=== PATIENT | male | born 1960 | race African-American/Black ===

== ENCOUNTER 2016-07-07 10:24 | Emergency (ER) ==
[2016-07-07] MEDS ORDERED: SODIUM CHLORIDE 1,000 ML IV STA (10:32)
[2016-07-07 10:45] VITALS: BP 81/44; TEMP 96.8; BMI 25.6
[2016-07-07 10:53] LABS: BASOPHILS % (AUTO) 0.5 % (0.0-3.0); EOSINOPHILS % (AUTO) 0.2 % (0.0-7.0); HEMATOCRIT 33.8 % (42.0-52.0); HEMOGLOBIN 11.7 g/dl (14.0-18.0); IMMATURE GRANULOCYTE % (AUTO) 0.4 % (0.0-5.0); LYMPHOCYTES # (AUTO) 1.3 K/uL (0.60-3.4); LYMPHOCYTES % (AUTO) 23.9 (10.0-50.0); MEAN CORPUSCULAR HEMOGLOBIN 31.9 pg (27.0-31.0); MEAN CORPUSCULAR HGB CONC 34.6 (31.8-35.4); MEAN CORPUSCULAR VOLUME 92.1 fl (80.0-94.0); MONOCYTES # (AUTO) 0.3 K/uL (0.4-2.0); MONOCYTES % (AUTO) 5.9 (0-10); NEUTROPHILS # (AUTO) 3.8 K/ul (2.0-6.9); NEUTROPHILS % (AUTO) 69.1; PLATELET COUNT 181 10^3/uL (140-440); RED BLOOD COUNT 3.67 10^6/ul (4.70-6.10); WHITE BLOOD COUNT 5.47 K/ul (4.2-10.2)
[2016-07-07 11:33] LABS: ALANINE AMINOTRANSFERASE 23 U/L (12-78); ALBUMIN 3.4 g/dL (3.4-5.0); ALBUMIN/GLOBULIN RATIO 0.92; ALKALINE PHOSPHATASE 167 U/L (50-136); ANION GAP 12.4; ASPARTATE AMINO TRANSFERASE 24 U/L (15-37); BILIRUBIN,TOTAL 0.33 mg/dL (0.00-1.20); BLOOD UREA NITROGEN 15 mg/dL (7-18); BUN/CREATININE RATIO 10.34; CALCIUM 8.7 mg/dL (8.2-10.2); CARBON DIOXIDE 25 mmol/L (21-32); CHLORIDE 106 mmol/L (98-107); CREATINE KINASE 203 U/L; CREATININE 1.45 mg/dL (0.60-1.10); GLUCOSE 125 mg/dL (70-100); POTASSIUM 3.4 mmol/L (3.5-5.1); SODIUM 140 mmol/L (136-145); TOTAL PROTEIN 7.1 g/dL (6.4-8.2)
[2016-07-07 11:51] LABS: CREATINE KINASE MB 2.6 ng/ml (0.0-3.6)
--- NOTE | 2016-07-07 12:15 | ED.PDOC ---
General ED Provider: Dr. SPENSER DURHAM Chief Complaint: Non-specific Complaint Stated Complaint: altered LOC Time Seen by Physician: 11:00 Information Source: EMT Exam Limitations: No limitations Primary Care Provider: FATIMAH DAVIS Nursing and Triage Documentation Reviewed and Agree: Yes Neurological Complaint Exam - Altered Mental Status Complaint/Exam Current Mental Status: Agitation (LOW BLOOD PRESSURE AT RESIDENCE ) Last Known Well: 1 DAY AGO Onset: Sudden Duration: UPON ARRIVAL WAS ALERT Symptoms Are: Resolved Episodes Lasting: Minutes Initial Severity: Mild Current Severity: None Eye Deviation Present: No Character: Reports: Agitation Aggravating: Reports: None Alleviating: Reports: None Associated Signs and Symptoms: Reports: Seizure (POSSIBLE). Denies: Dizziness, Weakness, Headache, Fever, Illness, Nuchal rigidity, Nausea, Vomiting, Recently depressed, Trauma Review of Systems - Review Of Systems Constitutional: Reports: No symptoms Eyes: Reports: No symptoms Ears, Nose, Mouth, Throat: Reports: No symptoms Respiratory: Reports: No symptoms Cardiac: Reports: No symptoms GI: Reports: No symptoms : Reports: No symptoms Musculoskeletal: Reports: No symptoms Skin: Reports: No symptoms Neurological: Reports: Cognitive dysfunction Endocrine: Reports: No symptoms Hematologic/Lymphatic: Reports: No symptoms All Other Systems: Reviewed and Negative Past Medical History - Past Medical History Previously Healthy: Yes Endocrine: Reports: None Cardiovascular: Reports: None Respiratory: Reports: None Hematological: Reports: None Gastrointestinal: Reports: None Genitourinary: Reports: None Neuro/Psych: Reports: None Musculoskeletal: Reports: None Cancer: Reports: None - Surgical History General Surgical History: Reports: None - Family History Family History: Reports: None - Social History Smoking Status: Unknown if ever smoked Hx Substance Use: No Alcohol Screening: None - Immunizations Tetanus Shot up to Date: (UNKNOWN) Physical Exam - Physical Exam Appearance: Well-appearing, No pain distress, Well-nourished Eyes: SHRUTHI, EOMI, Conjunctiva clear ENT: Ears normal, Nose normal, Oropharynx normal Respiratory: Airway patent, Breath sounds clear, Breath sounds equal, Respirations nonlabored Cardiovascular: RRR, Pulses normal, No rub, No murmur GI/: Soft, Nontender, No masses, Bowel sounds normal, No Organomegaly Musculoskeletal: Normal strength, ROM intact, No edema, No calf tenderness Skin: Warm, Dry, Normal color Neurological: Sensation intact, Motor intact, Reflexes intact, Cranial nerves intact, Alert, Oriented Psychiatric: Affect appropriate, Mood appropriate Critical Care Note - Critical Care Note Total Time (mins): 0 Course - Course Hematology/Chemistry: 07/07/16 10:40 07/07/16 10:40 Orders, Labs, Meds: Lab Review 07/07/16 10:40 WBC 5.47 RBC 3.67 L Hgb 11.7 L Hct 33.8 L MCV 92.1 MCH 31.9 H MCHC 34.6 RDW Coeff of Dale 13.6 Plt Count 181 Immature Gran % (Auto) 0.4 Neut % (Auto) 69.1 Lymph % (Auto) 23.9 Lake % (Auto) 5.9 Eos % (Auto) 0.2 Baso % (Auto) 0.5 Immature Gran # (Auto) 0.0 Neut # 3.8 Lymph # 1.3 Lake # 0.3 L Eos # 0.0 Baso # 0.0 Sodium 140 Potassium 3.4 L Chloride 106 Carbon Dioxide 25 Anion Gap 12.4 BUN 15 Creatinine 1.45 H Estimated GFR (MDRD) 61.00 BUN/Creatinine Ratio 10.34 Glucose 125 H Lactic Acid 20.8 H Calcium 8.7 Total Bilirubin 0.33 AST 24 ALT 23 Alkaline Phosphatase 167 H Total Creatine Kinase 203 CK-MB (CK-2) 2.6 CK-MB (CK-2) % 1.37126 Troponin I < 0.0100 Total Protein 7.1 Albumin 3.4 Globulin 3.7 Albumin/Globulin Ratio 0.92 TSH 3.307 Free T4 1.05 Orders Category Date Time Status EKG-(ED ONLY) Stat CARDIO 07/07/16 10:31 Completed ED IV/MEDIPORT/POWERPORT .ONCE EMERGENCY 07/07/16 10:31 Active BLOOD CULTURE Stat LAB 07/07/16 10:40 Received CBC W/ AUTO DIFF Stat LAB 07/07/16 10:40 Completed COMPREHENSIVE METABOLIC PANEL Stat LAB 07/07/16 10:40 Completed CREATINE KINASE Stat LAB 07/07/16 10:40 Completed D-DIMER Stat LAB 07/07/16 10:40 Received FREE T4 (FREE THYROXINE) Stat LAB 07/07/16 10:40 Completed LACTIC ACID Stat LAB 07/07/16 10:40 Completed THYROID STIMULATING HORMONE Stat LAB 07/07/16 10:40 Completed TROPONIN I Stat LAB 07/07/16 10:40 Completed URINALYSIS C & S IF INDICATED Stat LAB 07/07/16 10:31 Uncollected 0.9 % Sodium Chloride [Saline Flush] MEDS 07/07/16 10:31 Active 1 syr IVF PRN PRN Sodium Chloride 0.9% [Sodium Chloride] 1,000 ml MEDS 07/07/16 10:32 Active IV 200 mls/hr CT ABDOMEN/PELVIS WO CONTRAST Stat RADS 07/07/16 11:[address] CHEST W/O CONTRAST Stat RADS 07/07/16 11:35 Ordered Medications Generic Name Dose Route Start Last Admin Trade Name Freq PRN Reason Stop Dose Admin Sodium Chloride 1,000 mls @ 200 mls/hr 07/07/16 10:32 Sodium Chloride IV 07/07/16 15:31 .Q5H STA Sodium Chloride 1 syr 07/07/16 10:31 Saline Flush IVF PRN PRN To flush IV Vital Signs: Temp Pulse Resp BP Pulse Ox 07/07/16 10:28 96.8 F L 64 18 81/44 L 99 Departure - Departure Time of Disposition: 13:00 Disposition: HOME SELF-CARE Discharge Problem: Altered awareness, transient Instructions: Altered Mental Status (ED) Condition: Good Pt referred to PMD for follow-up: No Additional Instructions: Please call your Family Physician as soon as possible to schedule a follow-up appointment. Disposition Discussed With: Patient
--- NOTE | 2016-07-07 12:33 | CT ---
EXAM: CT ABDOMEN AND PELVIS HISTORY: Abdominal pain and diarrhea TECHNIQUE: CT abdomen and pelvis without intravenous contrast. Images were reconstructed using 5 m m section thickness. Reformations were prepared. COMPARISON: 02/14/2014 FINDINGS: Diagnostic limitations exist without including contrast enhanced images. Additional limitations exi st secondary to motion and artifact from the arms remaining down within the scanning field of view. No obvious focal hepatic or splenic lesion identified. Gallbladder, pancreas and adrenal glands hema ear normal. No nephrolithiasis or hydronephrosis is identified. The visualized ureters have grossl y normal caliber. Normal abdominal aorta. Stomach is distended with food product and air. An appendix, if present is not seen with any certain ty. No right lower quadrant inflammation. Bowel gas pattern is nonobstructive. There is thickenin g of the distal colon wall including the descending and rectosigmoid with subtle surrounding paracol ic fat stranding. Urinary bladder and prostate within normal limits. No ascites. Ventral abdominal wall is intact. Bones reveal endplate sclerosis and mild endplate erosion at L3/L 4 with disc space gas probably indicating longstanding severe degenerative disc disease. There is m ild irregularity of the lateral right femoral head which may be arthritic in nature or secondary to early avascular necrosis. These bony findings are grossly stable since previous exam. No pneumoperit oneum. See also same day CT thorax report. IMPRESSION: 1. Findings suggestive of moderate colitis, mainly affecting the descending and rectosigmoid. Cons ider inflammatory or infectious etiologies. Unlikely to be ischemic. Nonobstructive bowel gas homero oleg. No ascites or free air. 2. Stomach is mildly distended with food product and air, nonspecific. 3. Findings probably most consistent with severe longstanding degenerative disc disease at L3/L4. Given the appearance, chronic osteomyelitis/diskitis is not completely excluded and correlation with patient history and physical exam is recommended. MRI is available if indicated. 4. 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
--- NOTE | 2016-07-07 12:43 | CT ---
EXAM: CT THORAX HISTORY: Cough. TECHNIQUE: CT thorax without intravenous contrast. 5-mm axial sections. Coronal and sagittal re-fo rmations. COMPARISON: 05/18/2013 FINDINGS: Exam is limited without the administration of intravenous contrast, especially regarding the hilar s tructures and mediastinum. Overall heart size appears normal and there is no pericardial effusion. Fullness in the subcarinal space may represent conglomerate lymphadenopathy although similar appear ance was seen previously. Probable subtle infiltrate in the right upper lobe and medial right base. No pleural fluid or pneum othorax. The bones reveal severe degenerative disc and facet disease at the cervical level included within th e field of view, similar picture seen previously without noticeable change. There is arthropathy of the right shoulder with joint space and possibly regional extra capsular fluid . These shoulder fi ndings have developed since previous exam. IMPRESSION: 1. Probable mild patchy pneumonia in the right lung. 2. Cannot exclude mediastinal lymphadenopathy (benign versus malignant). Exam of the mediastinum l imited without the administration of intravenous contrast. Consider follow-up enhanced CT for danisha fication. 3. Interval development of apparent arthritic changes of the right shoulder with moderate volume lupillo int space and possibly extra capsular fluid. This may be related to osteoarthritis. An infectious or less likely neoplastic process would be less likely within the differential. This can be followe d by MRI. 4. Severe degenerative changes of the cervical spine similar to that previously seen.
[2016-07-07] MEDS ORDERED: LIDOCAINE 1 % AMP 5 ML (SUTURES) IM STA (12:58)
[2016-07-07] MEDS ORDERED: ROCEPHIN IM STA (12:58)
== END 2016-07-07 15:15 | disposition short-term general hospital (02) ==
LOC: ED 10:24
DX: K52.9 Noninfective gastroenteritis and colitis, unspecified (principal); R59.0 Localized enlarged lymph nodes; J18.9 Pneumonia, unspecified organism; R40.4 Transient alteration of awareness
CPT/HCPCS: 36415; 80053; 82550; 82553; 83605; 84439; 84443; 84484; 85025; 87040; 93005; 93010; 96372; 99285

== ENCOUNTER 2016-07-07 15:08 | Outpatient (CLI) ==
[2016-07-07 10:45] VITALS: BMI 25.6
== END 2016-07-07 15:09 ==
LOC: AMBL 15:08
PROVIDERS: ATTEND Internal Medicine
DX: R56.9 Unspecified convulsions (principal); F79 Unspecified intellectual disabilities